=== PATIENT | male | born 1965 | race Caucasian/White ===

== ENCOUNTER 2023-08-23 13:48 | Emergency (ER) | payer OTHER, SELFPAY ==
[2023-08-23 14:02] VITALS: BP 164/80; PULSE 82; RESP 20; TEMP 36.8; O2SAT 97
--- NOTE | 2023-08-23 14:04 | ED.UPPEXIN ---
HPI - Extremity Injury (Upper) General Chief Complaint: Extremity Injury, Upper Stated Complaint: Left Shoulder Pain Source: patient, RN notes reviewed and old records reviewed Mode of arrival: ambulatory Limitations: no limitations History of Present Illness HPI narrative: 57-year-old male who presents to [facility] with complaints left shoulder pain which has been ongoing for 4 week duration with no known specific injury. Patient reports he awoke one morning about 4 weeks ago and he thinks he slept on it wrong. Patient states that he was seen 2 weeks ago at [facility] and he received a Toradol shot and received prescription for Prednisone and Cyclobenzaprine which did help his discomfort but pain has resumed . Patient is left hand dominant. Patient reports pain to left shoulder with movement of his left arm and he is unable to sleep on his left side due to discomfort. MD complaint: injury to: left and shoulder (reports no known injury) Onset (ago): week(s) (4) Handedness: left Severity scale (1-10): 5 Treatments prior to arrival: other (took prednisone and muscle relaxers) Related Data Home Medications Medication Instructions Recorded Confirmed losartan 100 tablet 08/23/23 mg-hydrochlorothiazide 12.5 mg tablet methocarbamol 750 mg tablet mg 08/23/23 metoprolol tartrate 50 mg tablet mg 08/23/23 Allergies Allergy/AdvReac Type Severity Reaction Status Date / Time No Known Allergies Allergy Verified 08/23/23 14:01 Review of Systems Review of Systems: CONSTITUTIONAL: Denies fever, chills, or sweats. EYES: Denies visual changes, redness, or discharge. ENT: Denies rhinorrhea, congestion, sore throat, or otalgia. CARDIOVASCULAR: Denies chest pain, palpitations, or edema. RESPIRATORY: Denies cough or dyspnea. GASTROINTESTINAL: Denies abdominal pain, nausea, vomiting, or diarrhea. GENITOURINARY: Denies dysuria or hematuria. SKIN: Denies rash or itching. MUSCULOSKELETAL: Denies back pain, joint pain, positive for left shoulder pain NEUROLOGIC: Denies headache, numbness, or weakness. PSYCHIATRIC: Denies anxiety or depression. All systems reviewed & are unremarkable except as noted in HPI and below PMFSH Past Medical History Medical History (Updated 08/25/23 @ 06:44 by Vivian Toledo NP) History of prune belly syndrome Hypertension Kidney stones Morbid obesity Social History Social History (Updated 08/25/23 @ 06:38 by Vivian Toledo NP) Smoking status: Never smoker Alcohol intake: current Alcohol use details: rare Substance use type: does not use Gender identity (if verbalized by the patient): Male Comments At time of signature, agree with nursing past medical, surgical, social and family history. There is no relevant family history pertinent to the presenting complaint Exam Narrative: GENERAL: Well-appearing, well-nourished, morbidly obese and in no acute distress. HEAD: Normocephalic, atraumatic. EYES: PERRLA and EOMI. ENT: Nares clear, no rhinorrhea or epistaxis. Mucous membranes moist. NECK: Supple.no lymphadenopathy CHEST: Clear to auscultation. No respiratory distress.SAO2 97% on room air HEART: Regular rate and rhythm. No murmur heard. Normal peripheral pulses. ABDOMEN: Soft, nontender, nondistended, normal active bowel sounds. EXTREMITIES: Normal range of motion. No edema.Exception noted to pain to left shoulder with any movement of his left arm, strong pulses to left arm, reports no tingling or numbness of left upper extremity SKIN: Warm, dry, no rash. NEURO: No focal deficits. Alert and oriented x3. Course Course Emergency Course: Patient is aware of diagnosis, understands and agrees to treatment plan.? Anticipatory guidance given.? Patient agrees to follow-up as directed and is aware of reasons to seek care at the emergency department. Portions of this record may have been created with voice recognition software Level of Care: Express Care Visit Vital Signs Vital signs
== END 2023-08-23 14:34 | disposition home or self-care (01) ==
PROVIDERS: Emergency Provider Registered Nurse; PCP Family Medicine
DX: M25.512 Pain in left shoulder (principal); I10 Essential (primary) hypertension; E66.01 Morbid (severe) obesity due to excess calories; Z68.45 Body mass index [BMI] 70 or greater, adult
CPT/HCPCS: 99213; G0463